=== PATIENT | female | born 1980 | race Caucasian/White ===

== ENCOUNTER 2023-09-14 12:51 | Outpatient (OUT) | payer OTHER, SELFPAY ==
--- NOTE | 2023-09-14 12:53 | US_ITS ---
The [address] [address] Patient Name: EVY HARRISON MRN: [id number] date: 1980 Sex: F Assigned Patient Location: [facility] Current Patient Location: [facility] Accession/Order Number: [id number] Exam Date: 09/14/2023 12:54 Report Date: 09/14/2023 15:40 At the request of: JENAE JOHNSON Procedure: US pelvis w/ transvaginal EXAMINATION: US pelvis w/ transvaginal HISTORY: MENORRHAGIA, PELVIC PAIN COMPARISON: No relevant comparison available. FINDINGS: Limited exam due to patient body habitus The uterus is enlarged in size, lobular in contour with heterogeneous echotexture measuring 10.3 x 5.5 x 5.8 cm., Anteverted, anteflexed. No definite focal mass Endometrium measures 8 mm, normal. The ovaries are not visualized No free fluid US/US pelvis w/ transvaginal IMPRESSION: Enlarged lobular heterogeneous uterus with no focal mass Nonvisualization of the ovaries Electronically authenticated by: AFSHIN DEVRIES Date: 09/14/2023 15:40
== END 2023-09-14 12:52 | disposition home or self-care (01) ==
LOC: NOMS 12:51
PROVIDERS: Visit Provider Obstetrics & Gynecology
DX: N92.6 Irregular menstruation, unspecified (principal); N92.0 Excessive and frequent menstruation with regular cycle
CPT/HCPCS: 76830; 76856

== ENCOUNTER 2023-09-22 16:26 | Outpatient (OUT) | payer OTHER, SELFPAY ==
--- OUTSIDE RECORDS SUMMARY | 2023-09-22 16:37 | XMS_ITS | CCD ---
Author Organization [facility] Care Team Providers Care Collector Of Aquarium Specimens Name Role Phone Lucille White MD Unavailable JENAE BOLTON Attending Unavailable Results Test Name Value Interpretation Reference Range Facil ity CBC WITH DIFFon 08-10-2023 ABS BASOPHIL 0.04 x10^3ul Normal (0.00 - 0.16) [facility] Comment on above: Order Comment: FACIL ITY: DR WHITE - OFFICE [id number] Performed By: #### C BC/D, CHEM-C, TIBC+ #### [facility] [address] [facility], [address] ABS EOSINOPHIL 0.29 x10^3ul Normal (0.00 - 0.40) [facility] Comment on above: Order Comment: FACIL ITY: DR WHITE - OFFICE [id number] Performed By: #### C BC/D, CHEM-C, TIBC+ #### [facility] [address] [facility], [address] ABS IMMATURE GRANS 0.17 x10^3ul High (0.00 - 0.11) T [facility] Comment on above: Order Comment: FACIL ITY: DR WHITE - OFFICE [id number] Performed By: #### C BC/D, CHEM-C, TIBC+ #### [facility] [address] [facility], [address] ABS LYMPHOCYTE 2.04 x10^3ul Normal (0.96 - 5.40) [facility] [facility] Comment on above: Order Comment: FACIL ITY: DR WHITE - OFFICE [id number] Performed By: #### C BC/D, CHEM-C, TIBC+ #### [facility] [address] [facility], [address] ABS MONOCYTE 0.65 x10^3ul Normal (0.10 - 1.00) [facility] Comment on above: Order Comment: FACIL ITY: DR WHITE - OFFICE [id number] Performed By: #### C BC/D, CHEM-C, TIBC+ #### [facility] [address] [facility], [address] ABS NEUTROPHIL 10.59 x10^3ul High (1.50 - 7.00) [facility] Comment on above: Order Comment: FACIL ITY: DR WHITE - OFFICE [id number] Performed By: #### C BC/D, CHEM-C, TIBC+ #### [facility] [address] [facility], [address] Basophils/100 WBC (Bld) 0.3 % Normal () [facility] Comment on above: Order Comment: FACIL ITY: DR WHITE - OFFICE [id number] Performed By: #### C BC/D, CHEM-C, TIBC+ #### [facility] [address] [facility], [address] Eosinophils/100 WBC (Bld) 2.1 % Normal () [facility] Comment on above: Order Comment: FACIL ITY: DR WHITE - OFFICE [id number] Performed By: #### C BC/D, CHEM-C, TIBC+ #### [facility] [address] [facility], [address] Hematocrit (Bld) [Volume fraction] 30.9 % Low (37.0 - 47.0) [facility] Comment on above: Order Comment: FACIL ITY: DR WHITE - OFFICE [id number] Performed By: #### C BC/D, CHEM-C, TIBC+ #### [facility] [address] [place], [address] Hemoglobin (Bld) [Mass/Vol] 9.0 g/dL Low (12.0 - 16.0) [facility] Comment on above: Order Comment: FACIL ITY: DR WHITE - OFFICE [id number] Result Comment: HGB & HCT CHECKED BY REPEAT Performed By: #### C BC/D, CHEM-C, TIBC+ #### [facility] [address] [place], [address] IMMATURE GRANS (IG) 1.2 % Normal () [facility] Comment on above: Order Comment: FACIL ITY: DR WHITE - OFFICE [id number] Performed By: #### C BC/D, CHEM-C, TIBC+ #### [facility] [address] [place], [address] LYMPS 14.8 % Normal () [facility] Comment on above: Order Comment: FACIL ITY: DR WHITE - OFFICE [id number] Performed By: #### C BC/D, CHEM-C, TIBC+ #### [facility] [address] [place], [address] MCH (RBC) [Entitic mass] 22.1 pg Low (27.0 - 33.0) [facility] Comment on above: Order Comment: FACIL ITY: DR WHITE - OFFICE [id number] Performed By: #### C BC/D, CHEM-C, TIBC+ #### [facility] [address] [place], [address] MCHC (RBC) [Mass/Vol] 29.1 g/dL Low (30.0 - 37.0) [facility] Comment on above: Order Comment: FACIL ITY: DR WHITE - OFFICE [id number] Performed By: #### C BC/D, CHEM-C, TIBC+ #### [facility] [address] [place], [address] MCV (RBC) [Entitic vol] 75.9 fL Low (81.0 - 99.0) [facility] Comment on above: Order Comment: FACIL ITY: DR WHITE - OFFICE [id number] Performed By: #### C BC/D, CHEM-C, TIBC+ #### [facility] [address] [place], [address] MONOS 4.7 % Normal () [facility] Comment on above: Order Comment: FACIL ITY: DR WHITE - OFFICE [id number] Performed By: #### C BC/D, CHEM-C, TIBC+ #### [facility] [address] [place], [address] PLT 309 x10^3ul Normal (130 - 400) [facility] Comment on above: Order Comment: FACIL ITY: DR WHITE - OFFICE [id number] Performed By: #### C BC/D, CHEM-C, TIBC+ #### [facility] [address] [place], [address] RBC 4.07 x10^6ul Low (4.20 - 5.40) [facility] Comment on above: Order Comment: FACIL ITY: DR STACIA Gee OFFICE [id number] Performed By: #### C BC/D, CHEM-C, TIBC+ #### [facility] [address] [place], [address] RDW-SD 45.2 fl Normal (37.0 - 49.0) [facility] Comment on above: Order Comment: FACIL ITY: DR WHITE - OFFICE [id number] Performed By: #### C BC/D, CHEM-C, TIBC+ #### [facility] [address] [place], [address] SEGS 76.9 % Normal () [facility] Comment on above: Order Comment: FACIL ITY: DR STACIA Gee OFFICE [id number] Performed By: #### C BC/D, CHEM-C, TIBC+ #### [facility] [address] [place], [address] WBC 13.77 x10^3ul High (3.80 - 10.60) [facility] Comment on above: Order Comment: LADY DUEÑASY: DR WHITE - OFFICE [id number] Performed By: #### C BC/D, CHEM-C, TIBC+ #### [facility] [address] [place], [address] COMP METABOLIC PANEL W/GFRon 08-10-2023 Albumin [Mass/Vol] 3.7 g/dL Normal (3.5 - 5.0) [facility] Comment on above: Performed By: #### C BC/D, CHEM-C, TIBC+ #### [facility] [address] [place], [address] ALK PHOS 67 U/L Normal (38 - 126) [facility] Comment on above: Performed By: #### C BC/D, CHEM-C, TIBC+ #### [facility] [facility] [address] [place], [address] ALT [Catalytic activity/Vol] 20 U/L Normal (1 - 35) [facility] Comment on above: Performed By: #### C BC/D, CHEM-C, TIBC+ #### [facility] [address] [place], [address] AST [Catalytic activity/Vol] 28 U/L Normal (15 - 46) [facility] Comment on above: Performed By: #### C BC/D, CHEM-C, TIBC+ #### [facility] [address] [place], [address] Bilirubin [Mass/Vol] 0.4 mg/dL Normal (0.2 - 1.3) [facility] Comment on above: Performed By: #### C BC/D, CHEM-C, TIBC+ #### [facility] [address] [place], [address] Calcium [Mass/Vol] 9.0 mg/dL Normal (8.6 - 10.6) [facility] Comment on above: Performed By: #### C BC/D, CHEM-C, TIBC+ #### [facility] [address] [place], [address] Chloride [Moles/Vol] 106 mmol/L Normal (98 - 107) [facility] Comment on above: Performed By: #### C BC/D, CHEM-C, TIBC+ #### [facility] [address] [place], [address] CO2 [Moles/Vol] 28 mmol/L Normal (22 - 30) [facility] Comment on above: Performed By: #### C BC/D, CHEM-C, TIBC+ #### [facility] [address] [place], [address] Creatinine [Mass/Vol] 0.48 mg/dL Low (0.52 - 1.04) [facility] Comment on above: Performed By: #### C BC/D, CHEM-C, TIBC+ #### [facility] [address] [place], [address] GFR- AMER 171.6 ML/M1.7 High (60.0 - 140.1) [facility] Comment on above: Performed By: #### C BC/D, CHEM-C, TIBC+ #### [facility] [address] [place], [address] GFR-NON AFRIC-AMER 141.8 ML/M1.7 High (60.0 - 115.8) [facility] Comment on above: Performed By: #### C BC/D, CHEM-C, TIBC+ #### [facility] [address] [place], [address] Glucose [Mass/Vol] 106 mg/dL Normal (74 - 106) [facility] Comment on above: Performed By: #### C BC/D, CHEM-C, TIBC+ #### [facility] [address] [place], [address] Potassium [Moles/Vol] 4.5 mmol/L Normal (3.5 - 5.1) [facility] Comment on above: Performed By: #### C BC/D, CHEM-C, TIBC+ #### [facility] [address] [place], [address] Protein [Mass/Vol] 6.5 g/dL Normal (6.3 - 8.2) [facility] [facility] Comment on above: Performed By: #### C BC/D, CHEM-C, TIBC+ #### [facility] [place], [address] Sodium [Moles/Vol] 141 mmol/L Normal (137 - 145) [place] [facility] Comment on above: Performed By: #### C BC/D, CHEM-C, TIBC+ #### [facility] [place], [address] Urea nitrogen [Mass/Vol] 8 mg/dL Normal (7 - 17) [facility] Comment on above: Performed By: #### C BC/D, CHEM-C, TIBC+ #### [facility] [place], [address] IRON, TIBC AND FERRITINon % SATURATION 10 % Low (20 - 55) [facility] Comment on above: Performed By: #### C BC/D, CHEM-C, TIBC+ #### [facility] [address] [place], [address] Ferritin [Mass/Vol] 14.7 ng/mL Normal (6.0 - 137.0) [facility] Comment on above: Performed By: #### C BC/D, CHEM-C, TIBC+ #### [facility] [address] [place], [address] Iron [Mass/Vol] 44 ug/dL Normal (37 - 170) [facility] Comment on above: Performed By: #### C BC/D, CHEM-C, TIBC+ #### [facility] [address] [facility], [address] TIBC 428 UG/DL Normal (250 - 450) [facility] Comment on above: Performed By: #### C BC/D, CHEM-C, TIBC+ #### [facility] [address] [facility], [address] Encounters Encounter Date Encounter Type Care Provider Facility Start: 09-06-2023 End: 09-06-2023 ambulatory JENAE BOLTON Not Available Start: 08-16-2023 Chart abstracting Jneae Bolton DO Work Phone: [facility] Plan of Treatment Date Care Activity Detail Author Start: 09-06-2023 End: 09-06-2023 Patient encounter procedure 09/06/2023 1:10 PM EST Office Visit [facility] [address] [place] [address] Jenae Bolton, DO [address] [place] [address] [facility] Start: 03-05-2023 Influenza vaccination Influenza Vacc ine (#1) [facility] Start: 2021 Screening for malign ant neoplasm of breast Mammogram [facility] Start: 2011 Screening for malign ant neoplasm of cervix [facility] Start: 2002 Screening for malign ant neoplasm of cervix Pap Smear [facility] Payers Date Payer Category Payer Unknown [id number] 1980 Unknown [id number] Social History Date Type Detail Facility Start: 08-16-2023 Tobacco smoking status NHIS Ex-smoke r [facility] End: 07-05-2007 History of tobacco use Current smoker [facility] End: 07-05-2007 History of tobacco use Cigarette Smoker [facility] Start: 1980 Sex Assigned At Not on file [facility] Gender identity [facility] are Summary Purpose Family History No Family History Records FoundNo Family History Records Found Advance Directives No Advanced Directives Records FoundNo Advanced Directives Records Found Additional Source Comments INFORMATION SOURCE (unrecogn ized section and content) DATE CREATED AUTHOR 08/11/2023 [facility] DATE CREATED AUTHOR AUTHOR'S ORGANIZ ATION 09/15/2023 [facility] Care Teams (unrecognized sec tion and content) Collector Of Aquarium Specimens Relationship Specialty Start Date End Date Lucille White MD [address] [place] [address] PCP - External PCP Family Medicine 12/12/22 FOR RECORDS PERTAINING TO PATIENTS WHO ARE OR HAVE BEEN ENROLLED IN A CHEMICAL DEPENDENCY/SUBSTANCEABUSE PROGRAM, SOME INFORMATION MAY BE OMITTED. This clinical summary was aggregated from multiple sources. Caution should be exercised in using it in the provision of clinical care. This summary normalizes information from multiple sources, and as a consequence, information in this document may materially change the coding, format and clinical context of patient data. In addition, data may be omitted in some cases. CLINICAL DECISIONS SHOULD BE BASED ON THE PRIMARY CLINICAL RECORDS. [employer] provides no warranty or guarantee of the accuracy or completeness of information in this document.
[2023-09-22 17:16] LABS: INR 0.97; Partial Thromboplastin Time 27.6 sec (22.3-36.2); Prothrombin Time 10.3 sec (9.0-11.6)
[2023-09-22 17:18] LABS: Estimated Average Glucose 123 mg/dL; Glycohemoglobin A1C 5.9 % (4.5-6.2)
[2023-09-22 17:23] LABS: Free T4 0.96 ng/dL (0.76-1.46)
[2023-09-22 17:28] LABS: HCG Quantitative <1 mIU/mL; Thyroid Stimulating Hormone 4.996 uIU/mL (0.358-3.740)
[2023-09-22 17:29] LABS: Basophils Percent Auto 0.3 % (0.2-2.0); Eosinophils Absolute Auto 0.4 10^3/uL (0.0-0.7); Eosinophils Percent Auto 3.2 % (0.9-7.0); Hematocrit 31.5 % (36.0-48.0); Hemoglobin 8.7 g/dL (12.0-16.0); Immature Granulocytes Abs Auto 0.07 10^3/uL (0.00-0.03); Immature Granulocytes Pct Auto 0.6 % (0.0-0.5); Lymphocytes Absolute Auto 1.5 10^3/uL (1.2-3.8); Lymphocytes Percent Auto 12.9 % (20.5-60.0); Mean Corpuscular HGB Conc 27.6 g/dL (29.9-35.2); Mean Corpuscular Hemoglobin 20.9 pg (26.7-34.0); Mean Corpuscular Volume 75.5 fL (81.0-99.0); Mean Platelet Volume 11.4 fL (9.5-13.5); Monocytes Absolute Auto 0.5 10^3/uL (0.3-0.8); Monocytes Percent Auto 4.1 % (1.7-12.0); Neutrophils Absolute Auto 9.2 10^3/uL (1.4-6.5); Neutrophils Percent Auto 78.9 % (43.0-75.0); Platelet Count 303 10^3/uL (150-450); Red Blood Count 4.17 10^6/uL (4.20-5.40); White Blood Count 11.7 10^3/uL (4.0-11.0)
== END 2023-09-22 16:27 | disposition home or self-care (01) ==
LOC: LAB 16:27
PROVIDERS: Visit Provider Obstetrics & Gynecology
DX: N92.6 Irregular menstruation, unspecified (principal); N92.0 Excessive and frequent menstruation with regular cycle
CPT/HCPCS: 36415; 83036; 84439; 84443; 84702; 85025; 85610; 85730

== ENCOUNTER 2023-10-08 10:49 | Outpatient (OUT) | payer OTHER, SELFPAY ==
--- OUTSIDE RECORDS SUMMARY | 2023-10-08 11:02 | XMS_ITS | CCD ---
Author Organization [facility] Care Team Providers Care Sole Layer Name Role Phone Lucille White MD Unavailable [phone] JENAE BOLTON Attending Unavailable JENAE BOLTON Attending Unavailable Results Test Name Value Interpretation Reference Range Facil ity CBC WITH DIFFon 08-10-2023 ABS BASOPHIL 0.04 x10^3ul Normal (0.00 - 0.16) [facility] Comment on above: Order Comment: FACIL ITY: DR WHITE - OFFICE [id number] Performed By: #### C BC/D, CHEM-C, TIBC+ #### [facility] [address] [facility], [address] ABS EOSINOPHIL 0.29 x10^3ul Normal (0.00 - 0.40) [facility] Comment on above: Order Comment: FACIL ITY: DR WHITE - OFFICE [id number] Performed By: #### C BC/D, CHEM-C, TIBC+ #### [facility] [address] [facility], [address] ABS IMMATURE GRANS 0.17 x10^3ul High (0.00 - 0.11) [facility] Comment on above: Order Comment: FACIL ITY: DR WHITE - OFFICE [id number] Performed By: #### C BC/D, CHEM-C, TIBC+ #### [facility] [address] [facility], [address] ABS LYMPHOCYTE 2.04 x10^3ul Normal (0.96 - 5.40) [facility] Comment on above: Order Comment: FACIL ITY: DR WHITE - OFFICE [id number] Performed By: #### C BC/D, CHEM-C, TIBC+ #### [facility] [address] [place], [address] ABS MONOCYTE 0.65 x10^3ul Normal (0.10 - 1.00) [facility] Comment on above: Order Comment: FACIL ITY: DR STACIA Gee OFFICE [id number] Performed By: #### C BC/D, CHEM-C, TIBC+ #### [facility] [address] [facility], [address] ABS NEUTROPHIL 10.59 x10^3ul High (1.50 - 7.00) [facility] Comment on above: Order Comment: FACIL ITY: DR STACIA Gee OFFICE [id number] Performed By: #### C BC/D, CHEM-C, TIBC+ #### [facility] [address] [place], [address] Basophils/100 WBC (Bld) 0.3 % Normal () [facility] Comment on above: Order Comment: FACIL ITY: DR STACIA Gee OFFICE [id number] Performed By: #### C BC/D, CHEM-C, TIBC+ #### [facility] [address] [place], [address] Eosinophils/100 WBC (Bld) 2.1 % Normal () [facility] Comment on above: Order Comment: FACIL ITY: DR STACIA Gee OFFICE [id number] Performed By: #### C BC/D, CHEM-C, TIBC+ #### [facility] [address] [facility], [address] Hematocrit (Bld) [Volume fraction] 30.9 % Low (37.0 - 47.0) [facility] Comment on above: Order Comment: FACIL ITY: DR STACIA Gee OFFICE [id number] Performed By: #### C BC/D, CHEM-C, TIBC+ #### [facility] [address] [place], [address] Hemoglobin (Bld) [Mass/Vol] 9.0 g/dL Low (12.0 - 16.0) [facility] Comment on above: Order Comment: FACIL ITY: DR WHITE - OFFICE [id number] Result Comment: HGB & HCT CHECKED BY REPEAT Performed By: #### C BC/D, CHEM-C, TIBC+ #### [facility] [address] [place], [address] IMMATURE GRANS (IG) 1.2 % Normal () [facility]: Order Comment: FACIL ITY: DR WHITE - OFFICE [id number] Performed By: #### C BC/D, CHEM-C, TIBC+ #### [facility] [address] [place], [address] LYMPS 14.8 % Normal () [facility] Comment on above: Order Comment: FACIL ITY: DR WHITE - OFFICE [id number] Performed By: #### C BC/D, CHEM-C, TIBC+ #### [facility] [address] [place], [address] MCH (RBC) [Entitic mass] 22.1 pg Low (27.0 - 33.0) [facility] Comment on above: Order Comment: FACIL ITY: DR WHITE - OFFICE [id number] Performed By: #### C BC/D, CHEM-C, TIBC+ #### [facility] [address] [place], [address] MCHC (RBC) [Mass/Vol] 29.1 g/dL Low (30.0 - 37.0) [facility] Comment on above: Order Comment: FACIL ITY: DR WHITE - OFFICE [id number] Performed By: #### C BC/D, CHEM-C, TIBC+ #### [facility] [address] [place], [address] MCV (RBC) [Entitic vol] 75.9 fL Low (81.0 - 99.0) [facility] Comment on above: Order Comment: FACIL ITY: DR WHITE - OFFICE [id number] Performed By: #### C BC/D, CHEM-C, TIBC+ #### [facility] [address] [place], [address] MONOS 4.7 % Normal () [facility] Comment on above: Order Comment: FACIL ITY: DR WHITE - OFFICE [id number] Performed By: #### C BC/D, CHEM-C, TIBC+ #### [facility] [address] [place], [address] PLT 309 x10^3ul Normal (130 - 400) [facility] Comment on above: Order Comment: FACIL ITY: DR WHITE - OFFICE [id number] Performed By: #### C BC/D, CHEM-C, TIBC+ #### [facility] [address] [place], [address] RBC 4.07 x10^6ul Low (4.20 - 5.40) [facility] Comment on above: Order Comment: FACIL ITY: DR WHITE - OFFICE [id number] Performed By: #### C BC/D, CHEM-C, TIBC+ #### [facility] [address] [place], [address] RDW-SD 45.2 fl Normal (37.0 - 49.0) [facility] Comment on above: Order Comment: FACIL ITY: DR WHITE - OFFICE [id number] Performed By: #### C BC/D, CHEM-C, TIBC+ #### [facility] [address] [place], [address] SEGS 76.9 % Normal () [facility] Comment on above: Order Comment: FACIL ITY: DR STACIA Gee OFFICE [id number] Performed By: #### C BC/D, CHEM-C, TIBC+ #### [facility] [address] [place], [address] WBC 13.77 x10^3ul High (3.80 - 10.60) [facility] Comment on above: Order Comment: LADY PATEL: DR WHITE - OFFICE [id number] Performed By: #### C BC/D, CHEM-C, TIBC+ #### [place] [address] [place], [address] COMP METABOLIC PANEL W/GFRon 08-10-2023 Albumin [Mass/Vol] 3.7 g/dL Normal (3.5 - 5.0) [facility] Comment on above: Performed By: #### C BC/D, CHEM-C, TIBC+ #### [facility] [place], [address] ALK PHOS 67 U/L Normal (38 - 126) [facility] Comment on above: Performed By: #### C BC/D, CHEM-C, TIBC+ #### [facility] [place], [address] ALT [Catalytic activity/Vol] 20 U/L Normal (1 - 35) [facility] Comment on above: Performed By: #### C BC/D, CHEM-C, TIBC+ #### [facility] [place], [address] AST [Catalytic activity/Vol] 28 U/L Normal (15 - 46) [facility] Comment on above: Performed By: #### C BC/D, CHEM-C, TIBC+ #### [facility] [place], [address] Bilirubin [Mass/Vol] 0.4 mg/dL Normal (0.2 - 1.3) [facility] Comment on above: Performed By: #### C BC/D, CHEM-C, TIBC+ #### [place] [facility] [address] [place], [address] Calcium [Mass/Vol] 9.0 mg/dL Normal (8.6 - 10.6) [facility] Comment on above: Performed By: #### C BC/D, CHEM-C, TIBC+ #### [facility] [address] [place], [address] Chloride [Moles/Vol] 106 mmol/L Normal (98 - 107) [facility] Comment on above: Performed By: #### C BC/D, CHEM-C, TIBC+ #### [facility] [address] [place], [address] CO2 [Moles/Vol] 28 mmol/L Normal (22 - 30) [facility] Comment on above: Performed By: #### C BC/D, CHEM-C, TIBC+ #### [facility] [address] [place], [address] Creatinine [Mass/Vol] 0.48 mg/dL Low (0.52 - 1.04) [facility] Comment on above: Performed By: #### C BC/D, CHEM-C, TIBC+ #### [facility] [address] [place], [address] GFR- AMER 171.6 ML/M1.7 High (60.0 - 140.1) [facility] Comment on above: Performed By: #### C BC/D, CHEM-C, TIBC+ #### [facility] [address] [place], [address] GFR-NON AFRIC-AMER 141.8 ML/M1.7 High (60.0 - 115.8) [facility] Comment on above: Performed By: #### C BC/D, CHEM-C, TIBC+ #### [facility] [address] [place], [address] Glucose [Mass/Vol] 106 mg/dL Normal (74 - 106) [facility] Comment on above: Performed By: #### C BC/D, CHEM-C, TIBC+ #### [facility] [address] [place], [address] Potassium [Moles/Vol] 4.5 mmol/L Normal (3.5 - 5.1) [facility] Comment on above: Performed By: #### C BC/D, CHEM-C, TIBC+ #### [facility] [address] [place], [address] Protein [Mass/Vol] 6.5 g/dL Normal (6.3 - 8.2) [facility] Comment on above: Performed By: #### C BC/D, CHEM-C, TIBC+ #### [facility] [address] [place], [address] Sodium [Moles/Vol] 141 mmol/L Normal (137 - 145) [facility] Comment on above: Performed By: #### C BC/D, CHEM-C, TIBC+ #### [facility] [place], [address] Urea nitrogen [Mass/Vol] 8 mg/dL Normal (7 - 17) [facility] Comment on above: Performed By: #### C BC/D, CHEM-C, TIBC+ #### [facility] [address] [place], [address] IRON, TIBC AND FERRITINon % SATURATION 10 % Low (20 - 55) [facility] Comment on above: Performed By: #### C BC/D, CHEM-C, TIBC+ #### [facility] [address] [place], [address] Ferritin [Mass/Vol] 14.7 ng/mL Normal (6.0 - 137.0) [facility] Comment on above: Performed By: #### C BC/D, CHEM-C, TIBC+ #### [facility] [address] [place], [address] Iron [Mass/Vol] 44 ug/dL Normal (37 - 170) [facility] Comment on above: Performed By: #### C BC/D, CHEM-C, TIBC+ #### [facility] [address] [place], [address] TIBC 428 UG/DL Normal (250 - 450) [facility] Comment on above: Performed By: #### C BC/D, CHEM-C, TIBC+ #### [facility] [address] [place], [address] Encounters Encounter Date Encounter Type Care Provider Facility Start: 09-22-2023 End: 09-22-2023 ambulatory JENAE NGUYENO Not Available Start: 09-06-2023 End: 09-06-2023 ambulatory JENAE ALEX Not Available Start: 08-16-2023 Chart abstracting Jenae Bolton DO Work Phone: [facility] Plan of Treatment Date Care Activity Detail Author Start: 09-06-2023 End: 09-06-2023 Patient encounter procedure 09/06/2023 1:10 PM EST Office Visit [facility] [address] [place] [address] Jenae Bolton DO [address] [place] [address] [facility] Start: 03-05-2023 Influenza vaccination Influenza Vacc ine (#1) [facility] Start: 2021 Screening for malign ant neoplasm of breast Mammogram [facility] Start: 2011 Screening for malign ant neoplasm of cervix [facility] Start: 2002 Screening for malign ant neoplasm of cervix Pap Smear [facility] Payers Date Payer Category Payer Unknown [id number] 1980 Unknown [id number] 1980 Unknown [id number] [id number] Social History Date Type Detail Facility Start: 08-16-2023 Tobacco smoking status NHIS Ex-smoke r [facility] End: 07-05-2007 History of tobacco use Current smoker [facility] End: 07-05-2007 History of tobacco use [...] Clinic DATE CREATED AUTHOR AUTHOR'S ORGANIZ ATION 09/24/2023 [facility] dical Specialists [facility] Care Teams (unrecognized sec tion and content) Sole Layer Relationship Specialty Start Date End Date Lucille White MD [address] [place] [address] PCP - External PCP Family Medicine 12/12/22 [...] BE BASED ON THE PRIMARY CLINICAL RECORDS. [employer] [facility]. provides no warranty or guarantee of the accuracy or completeness of information in this document.
== END 2023-10-08 10:50 | disposition home or self-care (01) ==
PROVIDERS: Visit Provider Obstetrics & Gynecology
DX: Z01.818 Encounter for other preprocedural examination (principal); Z30.2 Encounter for sterilization; N92.0 Excessive and frequent menstruation with regular cycle; N93.9 Abnormal uterine and vaginal bleeding, unspecified; R10.2 Pelvic and perineal pain

== ENCOUNTER 2023-10-22 06:03 | Day surgery (SDC) | payer OTHER, SELFPAY ==
[2023-10-08 11:20] VITALS: BP 166/82; PULSE 93; TEMP 36.2; O2SAT 99; BMI 51.7
[2023-10-22] VITALS (11 sets, daily range): BP systolic 150–178; BP diastolic 71–98; PULSE 82–102; TEMP 36.2; O2SAT 93–98
--- OUTSIDE RECORDS SUMMARY | 2023-10-22 06:04 | XMS_ITS | CCD ---
Author Organization [facility] Care Team Providers Care Credit Historian Name Role Phone Lucille White MD Unavailable JENAE BOLTON Attending Unavailable JENAE BOLTON Attending Unavailable Results Test Name Value Interpretation Reference Range Facil ity CBC WITH DIFFon 08-10-2023 ABS BASOPHIL 0.04 x10^3ul Normal (0.00 - 0.16) [facility] Comment on above: Order Comment: FACIL ITY: DR WHITE - OFFICE [id number] Performed By: #### C BC/D, CHEM-C, TIBC+ #### [facility] [address] [facility], [address] ABS EOSINOPHIL 0.29 x10^3ul Normal (0.00 - 0.40) [facility] Comment on above: Order Comment: FACIL ITY: DR WHITE - OFFICE [id number] Performed By: #### C BC/D, CHEM-C, TIBC+ #### [facility] [address] [facility], [address] ABS IMMATURE GRANS 0.17 x10^3ul High (0.00 - 0.11) [facility] Comment on above: Order Comment: FACIL ITY: DR WHITE - OFFICE [id number] Performed By: #### C BC/D, CHEM-C, TIBC+ #### [facility] [address] [facility], [address] ABS LYMPHOCYTE 2.04 x10^3ul Normal (0.96 - 5.40) [facility] Comment on above: Order Comment: FACIL ITY: DR WHITE - OFFICE [id number] Performed By: #### C BC/D, CHEM-C, TIBC+ #### [facility] [address] [place], [address] ABS MONOCYTE 0.65 x10^3ul Normal (0.10 - 1.00) [facility] Comment on above: Order Comment: FACIL ITY: DR STACIA Gee OFFICE [id number] Performed By: #### C BC/D, CHEM-C, TIBC+ #### [facility] [address] [facility], [address] ABS NEUTROPHIL 10.59 x10^3ul High (1.50 - 7.00) [facility] Order Comment: FACIL ITY: DR STACIA Gee OFFICE [id number] Performed By: #### C BC/D, CHEM-C, TIBC+ #### [facility] [address] [place], [address] Basophils/100 WBC (Bld) 0.3 % Normal () [facility] Comment on above: Order Comment: FACIL ITY: DR STACIA Gee OFFICE [id number] Performed By: #### C BC/D, CHEM-C, TIBC+ #### [facility] [address] [place], [address] Eosinophils/100 WBC (Bld) 2.1 % Normal () [facility] Comment on above: Order Comment: FACIL ITY: DR STACIA Gee OFFICE [id number] Performed By: #### C BC/D, CHEM-C, TIBC+ #### [facility] [address] [facility], [address] Hematocrit (Bld) [Volume fraction] 30.9 % Low (37.0 - 47.0) [facility] Comment on above: Order Comment: FACIL ITY: DR STACIA Gee OFFICE [id number] Performed By: #### C BC/D, CHEM-C, TIBC+ #### [facility] [address] [place], [address] Hemoglobin (Bld) [Mass/Vol] 9.0 g/dL Low (12.0 - 16.0) [facility] Comment on above: Order Comment: FACIL ITY: DR WHITE - OFFICE [id number] Result Comment: HGB & HCT CHECKED BY REPEAT Performed By: #### C BC/D, CHEM-C, TIBC+ #### [place] [facility] [address] [place], [address] IMMATURE GRANS (IG) 1.2 % Normal () [facility] Comment on above: Order Comment: FACIL ITY: DR WHITE - OFFICE [id number] Performed By: #### C BC/D, CHEM-C, TIBC+ #### [facility] [facility] [address] [place], [address] LYMPS 14.8 % Normal () [facility] Comment on above: Order Comment: FACIL ITY: DR WHITE - OFFICE [id number] Performed By: #### C BC/D, CHEM-C, TIBC+ #### [facility] [address] [place], [address] MCH (RBC) [Entitic mass] 22.1 pg Low (27.0 - 33.0) [facility] Comment on above: Order Comment: FACIL ITY: DR WHITE - OFFICE [id number] Performed By: #### C BC/D, CHEM-C, TIBC+ #### [facility] [address] [place], [address] MCHC (RBC) [Mass/Vol] 29.1 g/dL Low (30.0 - 37.0) [facility] Comment on above: Order Comment: FACIL ITY: DR WHITE - OFFICE [id number] Performed By: #### C BC/D, CHEM-C, TIBC+ #### [facility] [address] [place], [address] MCV (RBC) [Entitic vol] 75.9 fL Low (81.0 - 99.0) [facility] Comment on above: Order Comment: FACIL ITY: DR WHITE - OFFICE [id number] Performed By: #### C BC/D, CHEM-C, TIBC+ #### [facility] [address] [place], [address] MONOS 4.7 % Normal () [facility] Comment on above: Order Comment: FACIL ITY: DR WHITE - OFFICE [id number] Performed By: #### C BC/D, CHEM-C, TIBC+ #### [facility] [address] [place], [address] PLT 309 x10^3ul Normal (130 - 400) [facility] Comment on above: Order Comment: FACIL ITY: DR WHITE - OFFICE [id number] Performed By: #### C BC/D, CHEM-C, TIBC+ #### [facility] [address] [place], [address] RBC 4.07 x10^6ul Low (4.20 - 5.40) [facility] Comment on above: Order Comment: FACIL ITY: DR WHITE - OFFICE [id number] Performed By: #### C BC/D, CHEM-C, TIBC+ #### [facility] [address] [place], [address] RDW-SD 45.2 fl Normal (37.0 - 49.0) [facility] [facility] Comment on above: Order Comment: FACIL ITY: DR WHITE - OFFICE [id number] Performed By: #### C BC/D, CHEM-C, TIBC+ #### [facility] [facility] [address] [place], [address] SEGS 76.9 % Normal () [facility] Comment on above: Order Comment: FACIL ITY: DR STACIA Gee OFFICE [id number] Performed By: #### C BC/D, CHEM-C, TIBC+ #### [facility] [facility] [address] [place], [address] WBC 13.77 x10^3ul High (3.80 - 10.60) [facility] Comment on above: Order Comment: LADY PATEL: DR WHITE - OFFICE [id number] Performed By: #### C BC/D, CHEM-C, TIBC+ #### [place] [facility] [address] [place], [address] COMP METABOLIC PANEL W/GFRon 08-10-2023 Albumin [Mass/Vol] 3.7 g/dL Normal (3.5 - 5.0) [facility] Comment on above: Performed By: #### C BC/D, CHEM-C, TIBC+ #### [place] [facility] [place], [address] ALK PHOS 67 U/L Normal (38 - 126) [facility] Comment on above: Performed By: #### C BC/D, CHEM-C, TIBC+ #### [facility] [place], [address] ALT [Catalytic activity/Vol] 20 U/L Normal (1 - 35) [facility] Comment on above: Performed By: #### C BC/D, CHEM-C, TIBC+ #### [facility] [place], [address] AST [Catalytic activity/Vol] 28 U/L Normal (15 - 46) [facility] Comment on above: Performed By: #### C BC/D, CHEM-C, TIBC+ #### [facility] [place], [address] Bilirubin [Mass/Vol] 0.4 mg/dL Normal (0.2 - 1.3) [facility] Comment on above: Performed By: #### C BC/D, CHEM-C, TIBC+ #### [place] [facility] [address] [place], [address] Calcium [Mass/Vol] 9.0 mg/dL Normal (8.6 - 10.6) [facility] Comment on above: Performed By: #### C BC/D, CHEM-C, TIBC+ #### [place] [facility] [address] [place], [address] Chloride [Moles/Vol] 106 mmol/L Normal (98 - 107) [facility] Comment on above: Performed By: #### C BC/D, CHEM-C, TIBC+ #### [facility] [facility] [address] [place], [address] CO2 [Moles/Vol] 28 mmol/L Normal (22 - 30) [facility] Comment on above: Performed By: #### C BC/D, CHEM-C, TIBC+ #### [facility] [facility] [address] [place], [address] Creatinine [Mass/Vol] 0.48 mg/dL Low (0.52 - 1.04) [facility] Comment on above: Performed By: #### C BC/D, CHEM-C, TIBC+ #### [place] [facility] [address] [place], [address] GFR- AMER 171.6 ML/M1.7 High (60.0 - 140.1) [facility] Comment on above: Performed By: #### C BC/D, CHEM-C, TIBC+ #### [place] [facility] [address] [place], [address] GFR-NON AFRIC-AMER 141.8 ML/M1.7 High (60.0 - 115.8) [facility] Comment on above: Performed By: #### C BC/D, CHEM-C, TIBC+ #### [place] [facility] [address] [place], [address] Glucose [Mass/Vol] 106 mg/dL Normal (74 - 106) [place] [facility] Comment on above: Performed By: #### C BC/D, CHEM-C, TIBC+ #### [place] [facility] [address] [place], [address] Potassium [Moles/Vol] 4.5 mmol/L Normal (3.5 - 5.1) [facility] Comment on above: Performed By: #### C BC/D, CHEM-C, TIBC+ #### [place] [facility] [address] [place], [address] Protein [Mass/Vol] 6.5 g/dL Normal (6.3 - 8.2) [facility] Comment on above: Performed By: #### C BC/D, CHEM-C, TIBC+ #### [place] [facility] [address] [place], [address] Sodium [Moles/Vol] 141 mmol/L Normal (137 - 145) [facility] Comment on above: Performed By: #### C BC/D, CHEM-C, TIBC+ #### [place] [facility] [place], [address] Urea nitrogen [Mass/Vol] 8 mg/dL Normal (7 - 17) [facility] Comment on above: Performed By: #### C BC/D, CHEM-C, TIBC+ #### [place] [facility] [address] [place], [address] IRON, TIBC AND FERRITINon % SATURATION 10 % Low (20 - 55) [place] [facility] Comment on above: Performed By: #### C BC/D, CHEM-C, TIBC+ #### [place] [facility] [address] [place], [address] Ferritin [Mass/Vol] 14.7 ng/mL Normal (6.0 - 137.0) [facility] Comment on above: Performed By: #### C BC/D, CHEM-C, TIBC+ #### [place] [facility] [address] [place], [address] Iron [Mass/Vol] 44 ug/dL Normal (37 - 170) [place] [facility] Comment on above: Performed By: #### C BC/D, CHEM-C, TIBC+ #### [place] [facility] [address] [place], [address] TIBC 428 UG/DL Normal (250 - 450) [place] [facility] Comment on above: Performed By: #### C BC/D, CHEM-C, TIBC+ #### [place] [facility] [address] [place], [address] Encounters Encounter Date Encounter Type Care Provider Facility Start: 09-22-2023 End: 09-22-2023 ambulatory JENAE NGUYENO Not Available Start: 09-06-2023 End: 09-06-2023 ambulatory JENAE ALEX Not Available Start: 08-16-2023 Chart abstracting Jenae Bolton DO Work Phone: [facility] Plan of Treatment Date Care Activity Detail Author Start: 09-06-2023 End: 09-06-2023 Patient encounter procedure 09/06/2023 1:10 PM EST Office Visit [facility] [address] [place] [address] Jenae Bolton DO [address] [place] [address] [facility] Start: 03-05-2023 Influenza vaccination Influenza Vacc ine (#1) [facility] Start: 2021 Screening for malign ant neoplasm of breast Mammogram [facility] Start: 2011 Screening for malign ant neoplasm of cervix [facility] Start: 2002 Screening for malign ant neoplasm of cervix Pap Smear [facility] Payers Date Payer Category Payer Unknown [id number] 1980 Unknown [id number] 1980 Unknown [id number] [id number] [id number] Social History Date Type Detail Facility Start: [...] DATE CREATED AUTHOR AUTHOR'S ORGANIZ ATION 09/24/2023 [facility] dical Specialists [facility] Care Teams (unrecognized sec tion and content) Credit Historian Relationship Specialty Start Date End Date Lucille White MD [address] [place] [address] PCP - External PCP Family Medicine 12/12/22 [...] BE BASED ON THE PRIMARY CLINICAL RECORDS. [employer] [facility]. provides no warranty or guarantee of the accuracy or completeness of information in this document.
[2023-10-22 06:13] LABS: Basophils Percent Auto 0.3 % (0.2-2.0); Eosinophils Absolute Auto 0.4 10^3/uL (0.0-0.7); Hematocrit 34.6 % (36.0-48.0); Hemoglobin 9.4 g/dL (12.0-16.0); Immature Granulocytes Abs Auto 0.07 10^3/uL (0.00-0.03); Immature Granulocytes Pct Auto 0.5 % (0.0-0.5); Lymphocytes Absolute Auto 1.8 10^3/uL (1.2-3.8); Lymphocytes Percent Auto 13.2 % (20.5-60.0); Mean Corpuscular HGB Conc 27.2 g/dL (29.9-35.2); Mean Corpuscular Hemoglobin 20.9 pg (26.7-34.0); Mean Corpuscular Volume 76.9 fL (81.0-99.0); Mean Platelet Volume 10.4 fL (9.5-13.5); Monocytes Absolute Auto 0.6 10^3/uL (0.3-0.8); Monocytes Percent Auto 4.4 % (1.7-12.0); Neutrophils Absolute Auto 10.5 10^3/uL (1.4-6.5); Neutrophils Percent Auto 78.6 % (43.0-75.0); Platelet Count 303 10^3/uL (150-450); White Blood Count 13.3 10^3/uL (4.0-11.0)
[2023-10-22 06:34] LABS: HCG Quantitative <1 mIU/mL
[2023-10-22] MEDS: LACTATED RINGER'S SOLUTION 1,000 ML 50 ML IV (06:55)
--- NOTE | 2023-10-22 09:17 | P.ON_ITS ---
Brief Operative Note Date of procedure: 10/22/23 Pre-op diagnosis general: menorrhagia, desires sterilization Post-op diagnosis: same as pre-op Procedure: NAME OF PROCEDURE: attempted anu PROCEDURE: The patient was taken back to the Operating Room where she was prepped and draped in normal sterile fashion after being placed under general anesthesia without difficulty. She was also placed in the dorsal lithotomy position. A weighted speculum was placed in the patient?s vagina. The anterior lip of the cervix was identified and grasped with a single tooth tenaculum. The patient?s uterus was then sounded roughly to [? 8] cm. The cervix was flush with vaginal wall, i was able to grasp part of cervix, due to pts habitus i was unable to get good visualization and i was unable to sound or dilate cervix dt cervical sten osis. The forcep was then removed from the patient's cervix where excellent hemostasis was noted. All instruments were removed from the patient?s vagina. The patient tolerated the procedure well. Sponge, lap and needle counts were correct times two. The patient was taken to the Recovery Room in stable condition.Room in stable condition. Anesthesia: GETA Surgeon: Rj Bolton Estimated blood loss (mL): 0 Pathology: none sent Condition: stable Disposition: PACU Urinary Catheter Management Urinary Catheter Management Urethral: Cath placed during this visit: no
== END 2023-10-22 10:10 | disposition home or self-care (01) ==
PROVIDERS: Visit Provider Obstetrics & Gynecology
PROC: (CPT 952; principal; 2023-10-22 07:30)
PROC: (CPT 952; 2023-10-22 07:30)
DX: N92.0 Excessive and frequent menstruation with regular cycle (principal); N93.9 Abnormal uterine and vaginal bleeding, unspecified; R10.2 Pelvic and perineal pain; Z87.891 Personal history of nicotine dependence; Z90.49 Acquired absence of other specified parts of digestive tract; E66.01 Morbid (severe) obesity due to excess calories; Z68.43 Body mass index [BMI] 50.0-59.9, adult
CPT/HCPCS: 58563; 36415; 84702; 85025; 99999; J1094; J1170; J2704